=== PATIENT | male | born 1990 | race Caucasian/White ===

== ENCOUNTER 2022-10-28 09:26 | Emergency (ER) | payer OTHER ==
[~2022-10-28] VITALS: Ht 177.8 cm; Wt 79.5 kg
[2022-10-28 09:31] VITALS: BP 131/86; PULSE 58; TEMP 98.3; O2SAT 100
[2022-10-28] MEDS ORDERED: ketorolac tromethamine 15mg/ml inj. IM ONE (14:15)
[2022-10-28] MEDS ORDERED: predniSONE 20 mg tablet PO ONE (14:15)
[2022-10-28] MEDS ORDERED: orphenadrine citrate 60mg/2ml inj. IM ONE (14:15)
[2022-10-28 14:22] VITALS: RESP 16
[2022-10-28] MEDS ORDERED: PRED20TA PO (14:36)
[2022-10-28] MEDS ORDERED: IBUP-1984 PO (14:36)
[2022-10-28] MEDS ORDERED: CYCL-1 PO (14:36)
== END 2022-10-28 14:51 | disposition home or self-care (01) ==
LOC: ER 09:27
DX: S39.012A Strain of muscle, fascia and tendon of lower back, initial encounter (principal); Z88.8 Allergy status to other drugs, medicaments and biological substances; Z79.1 Long term (current) use of non-steroidal anti-inflammatories (NSAID); Z79.899 Other long term (current) drug therapy; X58.XXXA Exposure to other specified factors, initial encounter; Y93.89 Activity, other specified; Y92.89 Other specified places as the place of occurrence of the external cause; Y99.8 Other external cause status
CPT/HCPCS: 96372; 99284; J1885; J2360; J7512